=== PATIENT | male | born 1965 | race African-American/Black ===

== ENCOUNTER 2017-08-29 00:48 | Emergency (ER) | payer MEDICAID ==
[~2017-08-29] VITALS: Ht 172.7 cm; Wt 72.0 kg
[~2017-08-29 00:48] MED LIST: FOLIC ACID; MVI
[2017-08-29] MEDS ORDERED: ALBUTEROL (0.083%) 2.5MG/3ML NEB HHN STA (08:40)
[2017-08-29 08:52] VITALS: BP 138/80
== END 2017-08-29 11:08 | disposition home or self-care (01) ==
LOC: ER 00:48
DX: B34.9 Viral infection, unspecified (principal); D57.1 Sickle-cell disease without crisis; F17.290 Nicotine dependence, other tobacco product, uncomplicated
CPT/HCPCS: 71010; 94640; 99283; 99406; J7030; J7611

== ENCOUNTER 2018-03-17 01:50 | Emergency (ER) | payer MEDICAID ==
[~2018-03-17] VITALS: Ht 170.2 cm; Wt 62.8 kg
[2018-03-17] MEDS ORDERED: KETOROLAC 60MG/2ML VIAL IM NR (04:30)
[2018-03-17 05:55] VITALS: BP 133/78
== END 2018-03-17 06:03 | disposition home or self-care (01) ==
LOC: ER 01:50
DX: R07.81 Pleurodynia (principal); M54.5 Low back pain; F17.200 Nicotine dependence, unspecified, uncomplicated; D57.1 Sickle-cell disease without crisis; W18.39XA Other fall on same level, initial encounter; Y93.89 Activity, other specified; Y92.89 Other specified places as the place of occurrence of the external cause; Y99.8 Other external cause status
CPT/HCPCS: 71045; 96372; 99283; J1885

== ENCOUNTER 2020-06-08 02:37 | Emergency (ER) | payer MEDICAID ==
[~2020-06-08] VITALS: Ht 170.2 cm; Wt 68.0 kg
[2020-06-08] MEDS ORDERED: TETANUS, DIPHTHERIA, PERTUSSIS VAC/PF 0.5ML (>7YR OLD) IM ONE (05:15)
[2020-06-08] MEDS ORDERED: NEOMYCIN/BACITRACIN/POLYMYXIN OINT 14GM TOP ONE (05:15)
[2020-06-08 05:45] VITALS: BP 111/74
== END 2020-06-08 05:47 | disposition home or self-care (01) ==
LOC: ER 02:37
DX: T20.10XA Burn of first degree of head, face, and neck, unspecified site, initial encounter (principal); T79.9XXA Unspecified early complication of trauma, initial encounter; X08.8XXA Exposure to other specified smoke, fire and flames, initial encounter; Y93.89 Activity, other specified; Y92.89 Other specified places as the place of occurrence of the external cause; Y99.8 Other external cause status
CPT/HCPCS: 90471; 90715; 99283